=== PATIENT | male | born 1990 | race Caucasian/White ===

== ENCOUNTER 2021-11-10 09:37 | Inpatient (IN) | payer OTHER ==
[~2021-11-10] VITALS: Ht 170.2 cm; Wt 83.9 kg
[2021-11-10] MEDS: NACL 0.9% 1,000 ML IV SCH ×2 (01:37→15:03)
[2021-11-10 09:44] VITALS: BP 15/73
[2021-11-10] MEDS ORDERED: DICYCLOMINE HCL LIQUID 20 MG, ALUMINUM HYD/MAG/SIMETHICONE 30 ML, LIDOCAINE VISCOUS 2% ... PO ONE ×3 (10:20)
[2021-11-10] MEDS ORDERED: ONDANSETRON 4 MG TAB PO ONE (10:25)
[2021-11-10] MEDS ORDERED: DICYCLOMINE HCL LIQUID 10 MG/5 ML UDC ONE (10:25)
[2021-11-10] MEDS ORDERED: ALUMINUM HYD/MAG/SIMETHICONE 30 ML UDC ONE (10:25)
[2021-11-10] MEDS ORDERED: FAMO-90 PO (10:29)
[2021-11-10] MEDS ORDERED: ONDA-188 SL (10:29)
[2021-11-10] MEDS ORDERED: MORPHINE SULFATE 4 MG/ML SYR IVP ONE ×2 (11:20→12:35)
[2021-11-10] MEDS ORDERED: METOCLOPRAMIDE 10 MG/2 ML INJ VIAL IVP ONE (11:20)
[2021-11-10] MEDS ORDERED: NACL 0.9% 1,000 ML IV ONE (11:25)
[2021-11-10 12:04] LABS: BASOPHILS % (AUTO) 0.1 % (0.0-2.0); EOSINOPHILS % (AUTO) 0.1 % (0.0-4.0); HEMATOCRIT 46.4 % (36-52); HEMOGLOBIN 15.8 g/dL (12.0-18.0); LYMPHOCYTES % (AUTO) 6.6 % (20.5-51.1); MEAN CORPUSCULAR HEMOGLOBIN 29 pg (27-31); MEAN CORPUSCULAR HGB CONC 34 g/dL (33-37); MEAN CORPUSCULAR VOLUME 85.1 fL (80-94); MONOCYTES # (AUTO) 0.6 K/uL (0.8-1.0); MONOCYTES % (AUTO) 4.1 % (1.7-9.3); NEUTROPHILS # (AUTO) 12.8 K/uL (1.8-7.7); NEUTROPHILS % (AUTO) 89.1 % (42.2-75.2); PLATELET COUNT (AUTO) 209 K/uL (140-450); RED BLOOD CELL COUNT(AUTO) 5.45 MIL/uL (4.20-6.10); RED CELL DISTRIBUTION WIDTH 13.2 % (11.6-13.7); WHITE BLOOD COUNT (AUTO) 14.4 K/uL (4.8-10.8)
[2021-11-10] MEDS ORDERED: metroNIDAZOLE 500 MG/NS PREMIX 100 ML IV ONE (12:15)
[2021-11-10 12:33] LABS: ALBUMIN 3.9 g/dL (3.4-5.0); ANION GAP 13.5 (8-16); CARBON DIOXIDE 28.7 mmol/L (21-32); CREATININE 0.9 mg/dL (0.6-1.3); POTASSIUM 4.2 mmol/L (3.5-5.1); TOTAL BILIRUBIN 0.3 mg/dL (0.0-1.0)
[2021-11-10] MEDS ORDERED: cefTRIAXone 1,000 MG VIAL ONE (12:48)
[2021-11-10 12:52] LABS: PROTHROMBIN TIME 10.7 secs (10.8-13.4)
[2021-11-10] MEDS ORDERED: DOCUSATE SODIUM 100 MG GELCAP PO PRN (13:35)
[2021-11-10] MEDS ORDERED: POTASSIUM CHLORIDE 10 MEQ TABER PO PRN (13:35)
[2021-11-10] MEDS ORDERED: MAG SULF 2000 MG/WATER PREMIX 50 ML IV PRN (13:35)
[2021-11-10] MEDS ORDERED: ZOLPIDEM 5 MG TAB PO PRN (13:35)
[2021-11-10] MEDS ORDERED: LORazepam 2 MG/ML VIAL IM/IVP PRN (13:35)
[2021-11-10] MEDS ORDERED: ACETAMINOPHEN 325 MG TAB PO PRN (13:35)
[2021-11-10] MEDS ORDERED: MORPHINE SULFATE 2 MG/ML SYR IVP PRN (13:35)
[2021-11-10] MEDS ORDERED: HYDROcodone/APAP 5/325 MG 1 TAB TAB PO PRN (13:35)
[2021-11-10] MEDS ORDERED: ONDANSETRON 4 MG/2 ML VIAL IM/IVP PRN (13:35)
[2021-11-10 14:02] LABS: MAGNESIUM 1.8 mg/dL (1.8-2.4); THYROID STIMULATING HORMONE 0.36 uIU/mL (0.34-3.74)
[2021-11-10 14:05] VITALS: BP 114/58
[2021-11-10] MEDS ORDERED: HYDROmorphone 1 MG/ML AMP IVP SCH (14:38)
[2021-11-10] MEDS: FAMOTIDINE 20 MG TAB PO PRN (14:59)
[2021-11-10 20:00] VITALS: BP 138/60
[2021-11-10] MEDS: PIPERACILLIN/TAZOBACTAM 3.375 GM in DEXTROSE 5% 50 ML IV SCH (20:49)
[2021-11-11] VITALS: BP 110/68
[2021-11-11 01:11] LABS: APPEARANCE,URINE CLEAR (CLEAR); BILIRUBIN,URINE NEGATIVE (NEGATIVE); BLOOD, URINE NEGATIVE (NEGATIVE); COLOR,URINE YELLOW (YELLOW); LEUKOCYTE ESTERASE ,URINE NEGATIVE (NEGATIVE); NITRITE, URINE NEGATIVE (NEGATIVE); UGLUCOSE NEGATIVE (NEGATIVE)
[2021-11-11 01:32] LABS: BARBITURATE, URINE NEGATIVE ng/ml (NEG <=200); BENZODIAZEPINE, URINE NEGATIVE ng/mL (NEG <=200); CANNABINOID, URINE NEGATIVE ng/mL (NEG <=50); COCAINE, URINE NEGATIVE ng/mL (NEG <=300); OPIATE, URINE POSITIVE ng/mL (NEG <=2000); PHENCYCLIDINE SCREEN,URINE NEGATIVE ng/mL (NEG <=25)
[2021-11-11 04:00] VITALS: BP 130/82
[2021-11-11] MEDS: PIPERACILLIN/TAZOBACTAM 3.375 GM in DEXTROSE 5% 50 ML IV SCH ×3 (05:14→21:00)
[2021-11-11 06:47] LABS: BASOPHILS % (AUTO) 0.1 % (0.0-2.0); EOSINOPHILS % (AUTO) 0.1 % (0.0-4.0); HEMATOCRIT 44.5 % (36-52); HEMOGLOBIN 15.1 g/dL (12.0-18.0); LYMPHOCYTES # (AUTO) 1.8 K/uL (2.0-11.5); LYMPHOCYTES % (AUTO) 10.3 % (20.5-51.1); MEAN CORPUSCULAR HEMOGLOBIN 29 pg (27-31); MEAN CORPUSCULAR HGB CONC 34 g/dL (33-37); MEAN CORPUSCULAR VOLUME 84.8 fL (80-94); MONOCYTES # (AUTO) 1.9 K/uL (0.8-1.0); MONOCYTES % (AUTO) 10.8 % (1.7-9.3); NEUTROPHILS % (AUTO) 78.7 % (42.2-75.2); PLATELET COUNT (AUTO) 210 K/uL (140-450); RED BLOOD CELL COUNT(AUTO) 5.24 MIL/uL (4.20-6.10); RED CELL DISTRIBUTION WIDTH 13.4 % (11.6-13.7); WHITE BLOOD COUNT (AUTO) 17.8 K/uL (4.8-10.8)
[2021-11-11] MEDS ORDERED: fentaNYL citrate 0.05 MG/ML VIAL ONE (07:13)
[2021-11-11] MEDS ORDERED: PROPOFOL 200 MG/20 ML VIAL IV ONE (07:13)
[2021-11-11] MEDS ORDERED: SEVOFLURANE 250 ML BTL INH ONE (07:13)
[2021-11-11] MEDS ORDERED: SUCCINYLCHOLINE CHLORIDE 200 MG/10 ML VIAL IVP ONE (07:13)
[2021-11-11] MEDS ORDERED: LIDOCAINE 1% 500 MG/50 ML VIAL ONE (07:17)
[2021-11-11] MEDS ORDERED: MEPERIDINE 25 MG/ML SYR IVP PRN ×2 (07:20→08:20)
[2021-11-11] MEDS ORDERED: HYDROmorphone 1 MG/ML AMP IVP PRN ×2 (07:20→08:10)
[2021-11-11] MEDS ORDERED: ONDANSETRON 4 MG/2 ML VIAL IVP PRN ×2 (07:20→08:10)
[2021-11-11] MEDS: LACTATED RINGERS 1,000 ML IV SCH ×2 (07:20→16:04)
[2021-11-11] MEDS ORDERED: diphenhydrAMINE 50 MG/ML VIAL IVP PRN (07:20)
[2021-11-11] MEDS ORDERED: BUPIVACAINE-MPF 0.5% 30 ML VIAL INJ ONE (07:21)
[2021-11-11 07:48] LABS: ANION GAP 13.6 (8-16); CARBON DIOXIDE 26.2 mmol/L (21-32); CREATININE 0.8 mg/dL (0.6-1.3); POTASSIUM 3.8 mmol/L (3.5-5.1)
[2021-11-11 07:53] LABS: MAGNESIUM 1.5 mg/dL (1.8-2.4); PHOSPHORUS 3.4 mg/dL (2.5-4.9)
[2021-11-11 08:06] LABS: T4 (THYROXINE) 8.5 ug/dL (4.5-12.0)
[2021-11-11] MEDS ORDERED: ROCURONIUM 50 MG/5 ML VIAL IV ONE (08:07)
[2021-11-11] MEDS ORDERED: HYDROcodone/APAP 5/325 MG 1 TAB TAB PO PRN (08:10)
[2021-11-11] MEDS ORDERED: PHENYLEPHRINE 10 MG/ML VIAL ONE (08:11)
[2021-11-11] MEDS ORDERED: ONDANSETRON 4 MG/2 ML VIAL ONE (08:12)
[2021-11-11] MEDS ORDERED: DEXAMETHASONE 4 MG/ML VIAL ONE (08:13)
[2021-11-11] MEDS ORDERED: SUGAMMADEX SODIUM 200 MG/2 ML VIAL IV ONE (08:33)
[2021-11-11] MEDS ORDERED: MEPERIDINE 50 MG/ML SYR ONE (08:36)
[2021-11-11] MEDS: NACL 0.9% 1,000 ML IV SCH (09:15)
[2021-11-11 09:20] LABS: CHOL/HDL RATIO 3.9 (1-4.5)
[2021-11-11] MEDS ORDERED: POTASSIUM CHLORIDE 10 MEQ TABER PO PRN (11:10)
[2021-11-11] MEDS ORDERED: MAG SULF 2000 MG/WATER PREMIX 50 ML IV PRN (11:10)
[2021-11-11 16:00] VITALS: BP 109/65
[2021-11-11 20:00] VITALS: BP 105/59
[2021-11-12] VITALS: BP 110/60
[2021-11-12] MEDS: NACL 0.9% 1,000 ML IV SCH ×3 (01:30→15:55)
[2021-11-12 04:00] VITALS: BP 107/55
[2021-11-12] MEDS: PIPERACILLIN/TAZOBACTAM 3.375 GM in DEXTROSE 5% 50 ML IV SCH ×2 (05:00→13:25)
[2021-11-12 07:23] LABS: BASOPHILS % (AUTO) 0.2 % (0.0-2.0); EOSINOPHILS % (AUTO) 0.5 % (0.0-4.0); HEMATOCRIT 43.9 % (36-52); HEMOGLOBIN 14.7 g/dL (12.0-18.0); LYMPHOCYTES # (AUTO) 2.7 K/uL (2.0-11.5); LYMPHOCYTES % (AUTO) 28.8 % (20.5-51.1); MEAN CORPUSCULAR HEMOGLOBIN 29 pg (27-31); MEAN CORPUSCULAR HGB CONC 33 g/dL (33-37); MEAN CORPUSCULAR VOLUME 86.5 fL (80-94); MONOCYTES # (AUTO) 0.6 K/uL (0.8-1.0); MONOCYTES % (AUTO) 6.8 % (1.7-9.3); NEUTROPHILS % (AUTO) 63.7 % (42.2-75.2); PLATELET COUNT (AUTO) 190 K/uL (140-450); RED BLOOD CELL COUNT(AUTO) 5.08 MIL/uL (4.20-6.10); RED CELL DISTRIBUTION WIDTH 13.1 % (11.6-13.7); WHITE BLOOD COUNT (AUTO) 9.4 K/uL (4.8-10.8)
[2021-11-12 07:42] LABS: MAGNESIUM 1.9 mg/dL (1.8-2.4); PHOSPHORUS 2.3 mg/dL (2.5-4.9)
[2021-11-12 08:00] VITALS: BP 108/63
[2021-11-12 08:09] LABS: ANION GAP 10.3 (8-16); CARBON DIOXIDE 28.3 mmol/L (21-32); CREATININE 0.9 mg/dL (0.6-1.3); POTASSIUM 3.6 mmol/L (3.5-5.1)
[2021-11-12] MEDS: LACTATED RINGERS 1,000 ML IV SCH ×2 (09:11)
[2021-11-12] MEDS: FAMOTIDINE 20 MG TAB PO PRN (09:12)
[2021-11-12] MEDS ORDERED: DOCU-299 PO (10:04)
[2021-11-12] MEDS ORDERED: HYDR-5080 PO (10:04)
[2021-11-12 14:06] VITALS: BP 108/63
== END 2021-11-12 16:12 | disposition home or self-care (01) | DRG 855 ==
LOC: MED 09:37 → MTU 12:52
PROC: 0DTJ4ZZ Resection of Appendix, Percutaneous Endoscopic Approach (ICD-10-PCS; principal; 2021-11-11 07:30)
DX: A41.9 Sepsis, unspecified organism (principal); K37 Unspecified appendicitis; E83.42 Hypomagnesemia; E83.39 Other disorders of phosphorus metabolism; Z20.822 Contact with and (suspected) exposure to COVID-19; K21.9 Gastro-esophageal reflux disease without esophagitis; E86.0 Dehydration; K44.9 Diaphragmatic hernia without obstruction or gangrene; Z79.899 Other long term (current) drug therapy
CPT/HCPCS: 36415; 71045; 80048; 80053; 80305; 81003; 83036; 83605; 83690; 83735; 83880; 84100; 84134; 84436; 84443; 85025; 85610; 85730; 86886; 86900; 86901; 87040; 87081; 87086; 93005; 96365; 96375; 96376; 99285; J0330; J0696; J1100; J1170; J1644; J2001; J2175; J2270; J2370; J2405; J2543; J2704; J2765; J3010; J3490; J7060; J7120; Q0162

== ENCOUNTER 2022-03-15 11:07 | Emergency (ER) | payer OTHER ==
[~2022-03-15] VITALS: Ht 170.2 cm; Wt 77.1 kg
[~2022-03-15 11:07] MED LIST: DOCU-299 PO; FAMO-90 PO; HYDR-5080 PO; ONDA-188 SL
[2022-03-15 11:10] VITALS: BP 146/62
[2022-03-15] MEDS ORDERED: DOCU-299 PO (12:57)
[2022-03-15] MEDS ORDERED: LIDO4CRE18 TP (12:57)
[2022-03-15] MEDS ORDERED: MUPI2CRE22 TP (12:57)
[2022-03-15 13:05] VITALS: BP 114/70
--- NOTE | 2022-03-15 13:06 | NUR ---
Patient discharged with v/s stable. Written and verbal after care instructions given and explained. Patient verbalized understanding. Ambulatory with steady gait. All questions addressed prior to discharge. Advised to follow up with PMD.
== END 2022-03-15 13:06 | disposition home or self-care (01) ==
LOC: MED 11:07
DX: K62.89 Other specified diseases of anus and rectum (principal); R21 Rash and other nonspecific skin eruption; R03.0 Elevated blood-pressure reading, without diagnosis of hypertension; Z79.899 Other long term (current) drug therapy
CPT/HCPCS: 99283